=== PATIENT | male | born 1960 | race Caucasian/White ===

== ENCOUNTER 2020-12-11 08:27 | Emergency (ER) | payer OTHER ==
[2020-12-11 09:13] LABS: BASOPHIL 1.3 % (0-2); EOSINOPHIL 4.1 % (0-5); HCT 42.3 % (42.0-52.0); HGB 13.6 g/dl (13.2-18.0); LYMPHOCYTE 31.2 % (15-48); MCHC 32.2 g/dL (32.0-36.0); MCV 96.4 fL (78.0-100.0); MONOCYTE 6.3 % (0-12); MPV 10.6 fL (6.0-9.5); NEUTROPHIL 56.6 % (41-80); NRBC 0; PLT 327 K/uL (150-400); RBC 4.39 M/uL (4.70-6.00); RDW 13.5 % (11.5-14.0)
[2020-12-11 09:16] LABS: INR 1.04 (0.9-1.2); PROTHROMBIN TIME 12.9 SECONDS (11.4-13.6); PTT 25.8 SECONDS (22.2-34.7)
[2020-12-11 09:42] LABS: ALBUMIN 3.6 g/dL (3.4-5.0); BILIRUBIN - TOTAL 0.2 mg/dL (0.2-1.0); BUN/CREAT RATIO (CALC) 8.5 RATIO; CREATININE 1.3 mg/dL (0.67-1.17); GLOBULIN (CALCULATION) 3.5 g/dL; POTASSIUM 4.1 mmol/L (3.5-5.1); TOTAL PROTEIN 7.1 g/dL (6.4-8.2)
== END 2020-12-11 09:19 | disposition other institution (70) ==
LOC: FER 08:27
PROVIDERS: Emergency Medicine Emergency Medical Services
DX: I21.29 ST elevation (STEMI) myocardial infarction involving other sites (principal); E11.9 Type 2 diabetes mellitus without complications; F17.210 Nicotine dependence, cigarettes, uncomplicated; Z79.84 Long term (current) use of oral hypoglycemic drugs
CPT/HCPCS: 36415; 71045; 80053; 83880; 84484; 85025; 85610; 85730; 92950; 93005; 96374; 96375; J1644; J2405; J7030